=== PATIENT | female | born 1940 | race Caucasian/White ===

== ENCOUNTER 2019-06-05 11:24 | Outpatient (CLI) | payer MEDICARE, SELFPAY ==
--- NOTE | ~2019-06-05 | MMUS_ITS ---
EXAMINATION: MM diagnostic mammo BI, US breast BI limited HISTORY: Bilateral breast masses on screening mammogram TECHNIQUE: Additional 3-D tomosynthesis images of the breasts were performed and synthetic 2-D images were generated. CAD analysis was submitted and interpreted. High resolution limited bilateral breast ultrasound was performed. COMPARISON: 05/11/2019, 05/17/2018, 04/30/2017, 01/28/2015 FINDINGS: MAMMOGRAPHIC FINDINGS: Right breast: There is a 9 mm x 6 mm oval, obscured, equal density mass in the middle third of the br east at the 9:00 location 6 cm from the nipple. Left breast: There are several low density oval, obscured masses in the outer breast, the largest of which measures 12 mm at the 2:00 to 3:00 location. No spiculated mass is identified. ULTRASOUND: Right breast: There are cysts of the outer right breast which measure up to 8 mm. No suspicious sonog raphically detected right breast mass is identified. Left breast: There are cysts of the outer breast including a 1.4 cm cyst at the 2:00 location, accoun ting for the largest mammographically detected mass. There is a 4 mm x 3 mm oval, circumscribed, para llel, hypoechoic mass at the 2:00 location 2 cm from the nipple with no posterior features or interna l vascularity. IMPRESSION: 1. Bilateral breast cysts and a probably benign mass of the left breast at the 2:00 location 2 cm fro m the nipple. 2. Recommend 6 month follow-up left diagnostic mammogram and ultrasound and routine annual screening of the right breast. BI-RADS category 3, probably benign findings. Reviewed, dictated and finalized at location A. [place] IMPRESSION: 1. Bilateral breast cysts and a probably benign mass of the left breast at the 2:00 location 2 cm from the nipple. 2. Recommend 6 month follow-up left diagnostic mammogram and ultrasound and rou stephanie annual screening of the right breast. BI-RADS category 3, probably benign findings.
== END 2019-06-05 11:25 | disposition home or self-care (01) ==
PROVIDERS: PCP Family Medicine; Visit Provider Physician Assistant
DX: R92.8 Other abnormal and inconclusive findings on diagnostic imaging of breast (principal)
CPT/HCPCS: 76642; 77066

== ENCOUNTER → 2019-12-07 10:48 | Outpatient (CLI) | payer MEDICARE, SELFPAY ==
--- NOTE | ~2019-12-07 | XR_ITS ---
XR ankle LT 2V DATE: 12/07/2019 11:09 INDICATION: Left ankle pain, left foot pain TECHNIQUE: AP and lateral views COMPARISON: None FINDINGS: There is mild plantar calcaneal enthesopathy, without periostitis or erosive change. There is hypertrophic degenerative spurring dorsally at the tarsal and tarsal metatarsal region. No fracture or dislocation of the ankle or disruption of the ankle mortise. No periosteal reaction or bone destruction. IMPRESSION: Mild plantar calcaneal enthesopathy Reviewed, dictated and finalized at location A.
== END ==
PROVIDERS: PCP Family Medicine; Visit Provider Family Medicine
DX: M77.32 Calcaneal spur, left foot (principal)
CPT/HCPCS: 73600

== ENCOUNTER 2020-03-09 10:00 | Outpatient (RCR) | payer MEDICARE, SELFPAY ==
--- NOTE | 2020-02-17 11:55 | PTOPEVAL ---
PHYSICAL THERAPY EVALUATION Thank you for referring Emy Lopez to [facility] [place].? Emy was seen for evaluation of the left ankle sprain. The patient is scheduled to be seen for therapy? 1-2x/week for 3 weeks. Please review, sign, date and return this plan of care PABLO. I agree with and certify that the following plan of care is medically necessary. Referring Physician Date Attending Provider: Edgard Novak MD *PT Outpatient Evaluation Start: 02/17/20 10:29 Freq: Status: Active Protocol: Document 02/17/20 10:29 [facility] (Rec: 02/17/20 11:54 [facility] [id number]) Evaluation Evaluation Information Problem Diagnosis left ankle sprain/pain Onset 5 months Cause none Additional Evaluation Detail Patient has no history with her ankle prior. Subjective Information Patient reports pain that had Query Text:As Reported By Patient/ no injury to provoke but was Family walking about a mile a day. Had to stop walking due to ankle issue. The patient saw MD, used tylenol, ice and rest and MD gave her a cortisone shot. The ankle is about 75% better but if on feet for daily activity, the pain returns and she must sit to rest a while. 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 Pain Assessment Timing of Pain Assessment Timing of Pain Assessment Pre-Treatment Pain Scale Pain Scale Used Numeric (1 - 10) Self Report Pain Assessment Left Ankle(s) Reported Pain Level 5 Pain Description Aching,Tightness Pain Frequency Acute Lowest Pain Intensity 7 Greatest Pain Intensity 10 Pain Aggravating Factors Stair Climbing,Walking Other Pain Aggravating Factors carrying weight, Pain Behaviors Limping Pain Score Pain Score 5: Self Report Interventions Used Interventions Used By Clinicians Education,Exercise Other Alleviating Interventions tubigrip (E) left ankle Lower Extremity Range of Motion General Lower Extremity Range of Motion Gross Lower Extremity Range of Motion ankle active motions: right Comments ankle DF 3, PF 35, inversion 23, eversion 5 degrees left ankle: DF 0, PF 30, inversion 16, eversion 0 Lower Extremity Muscle Strength Testing General Lower Extremity Strength Reason Not Measured
--- NOTE | 2020-03-09 10:47 | PTOPEVAL ---
PHYSICAL THERAPY DISHCARGE SUMMARY Thank you for referring Emy Lopez to [facility].? The patient has been seen for 7 visits, for her left ankle sprain, and her goals have been met. Thank you for your referral. Attending Provider: Edgard Novak MD *PT Outpatient Discharge Start: 02/17/20 10:29 Freq: Status: Active Protocol: Document 03/09/20 10:00 [facility] (Rec: 03/09/20 10:47 [facility] [id number]) Therapy Assessment Status Discharge Pain Assessment Timing of Pain Assessment Timing of Pain Assessment Pre-Treatment Self Report Self Report Pain Level 0 Pain Score Pain Score 0: Self Report Lower Extremity Range of Motion General Lower Extremity Range of Motion Gross Lower Extremity Range of Motion left ankle active motion Comments improved: DF 2dg, PF 40dg, inversion 18dg, eversion 16 Lower Extremity Muscle Strength Testing General Lower Extremity Strength Gross Lower Extremity Strength patient now able to complete left ankle inversion and eversion with red tband for 15 -20 reps without increased pain and good movement control . Patient was unable to move actively through motion at eval; power was only isometrically strong Palpation Assessment Palpation Palpation patient is no longer tender/ tight at left ankle Extremity Circumference Assessment Circumference Assessment Location Left Body Part Ankle Site Descriptor ([place]) lateral malleolus Circumference (cm) 22 Noninvolved Side Circumference (cm) 22 Circumference Comments patient wearing tubigrip regularly to keep swelling in control. Gait Assessment Gait Pattern Assessment Other Gait Observations improved gait with a decrease in left limp 90% since eval Rehab Teaching Rehab Teaching Teaching Topic Rehab Teaching Topic Components Exercise,Transfer/Mobility Training As Pertains To Follow-up,Therapy Prognosis Recipient Patient Barriers to Learning None Readiness to Learn Excellent Response Returns Demonstration, Verbalizes Understanding Additional Rehab Teaching Comments instruction to assure exercises to be done after PT d/c PT Clinical Summary Mrs. Lopez is an 79 y/o female seen for left ankle
== END 2020-03-09 12:47 | disposition home or self-care (01) ==
LOC: ANHPT 10:00
PROVIDERS: PCP Family Medicine; Visit Provider Orthopaedic Surgery
DX: S93.402D Sprain of unspecified ligament of left ankle, subsequent encounter (principal)
CPT/HCPCS: 97110; 97161

== ENCOUNTER 2020-07-12 15:53 | Outpatient (CLI) | payer MEDICARE, SELFPAY ==
--- NOTE | ~2020-07-12 | US_ITS ---
US pelvic complete w TV DATE: 07/12/2020 16:27 INDICATION: Left lower quadrant, pelvic pain TECHNIQUE: Real-time imaging via transabdominal and transvaginal approaches COMPARISON: None FINDINGS: An approximately 2.6 x 3.6 x 2.8 cm heterogeneous uterine mass is noted. Different diagnosi s includes endometrial malignancy versus uterine fibroid. The ovaries appear unremarkable. No pelvic mass or abnormal pelvic fluid collection is noted otherwise. IMPRESSION: 2.6 x 3.6 x 2.7 heterogeneous uterine mass; diffusion diagnosis includes endometrial gary gnancy and uterine fibroid Reviewed, dictated and finalized at Location A. Reviewed, dictated and finalized at location A. IMPRESSION: 2.6 x 3.6 x 2.7 heterogeneous uterine mass; diffusion diagnosis inc ludes endometrial malignancy and uterine fibroid
== END 2020-07-12 15:54 | disposition home or self-care (01) ==
PROVIDERS: PCP Family Medicine; Visit Provider Family Medicine
DX: R10.32 Left lower quadrant pain (principal)
CPT/HCPCS: 76830; 76856

== ENCOUNTER 2020-07-28 09:57 | Outpatient (CLI) | payer MEDICARE, SELFPAY ==
[2020-07-28 10:34] LABS: Basophils Absolute Auto 0.1 K/mm3 (0.0-0.1); Eosinophils Absolute Auto 0.2 K/mm3 (0-0.3); Eosinophils Percent Auto 3.1 % (0-4.4); Hematocrit 36.8 % (37.0-47.0); Hemoglobin 11.7 g/dL (12.0-15.0); Immature Granulocyte Absolute 0.02 K/mm3 (0.00-0.031); Immature Granulocyte Percent A 0.4 % (0-0.5); Lymphocytes Absolute Auto 1.74 K/mm3 (0.9-3.2); Lymphocytes Percent Auto 36.3 % (18.3-44.2); Mean Corpuscular HGB Conc 31.8 g/dl (32-36); Mean Corpuscular Hemoglobin 31.1 pg (26-34); Mean Corpuscular Volume 97.9 fl (80-100); Mean Platelet Volume 10.5 fl (7.4-10.4); Monocytes Absolute Auto 0.4 K/mm3 (0.1-0.6); Neutrophils Absolute Auto 2.4 K/mm3 (1.3-6.7); Neutrophils Percent Auto 50.2 % (45.5-73.1); Platelet Count Result 266 k/mm3 (150-375); Red Blood Count 3.76 M/mm3 (4.2-5.4); Red Cell Distribution Width 13.8 % (11.5-14.5); White Blood Count 4.8 K/mm3 (4.5-10.0)
[2020-07-28 10:43] LABS: Rheumatoid Factor < 8.6 IU/ML (<12)
[2020-07-28 10:46] LABS: CRP < 0.5 mg/dL (<1.0); Uric Acid 4.8 mg/dL (2.5-7.5)
[2020-07-28 11:16] LABS: Erythrocyte Sedimentation Rate 49 mm/hr (0-20)
== END 2020-07-28 09:58 | disposition home or self-care (01) ==
LOC: ANHLAB 10:02
PROVIDERS: PCP Family Medicine; Visit Provider Orthopaedic Surgery
DX: M17.0 Bilateral primary osteoarthritis of knee (principal); M06.9 Rheumatoid arthritis, unspecified
CPT/HCPCS: 36415; 84550; 85025; 85652; 86038; 86140; 86430

== ENCOUNTER 2020-08-19 11:26 | Outpatient (CLI) | payer MEDICARE, SELFPAY ==
--- NOTE | 2020-08-19 11:30 | ECG_ITS ---
Measurements Intervals [place] Rate: 64 P: 69 OR: 194 QRS: 11 QRSD: 90 T: 37 QT: 392 QTc: 406 Interpretive Statements SINUS RHYTHM ATRIAL PREMATURE COMPLEX BASELINE ARTIFACT- I, II, III, AVR, AVL, AVF BORDERLINE ECG Electronically Signed On 08-19-2020 11:47:57 CDT by Evangelista Luna D.O.
== END 2020-08-19 11:27 | disposition home or self-care (01) ==
LOC: ANHSURGERY 11:28
PROVIDERS: PCP Family Medicine; Visit Provider Obstetrics & Gynecology
DX: I10 Essential (primary) hypertension (principal); Z01.818 Encounter for other preprocedural examination; R94.31 Abnormal electrocardiogram [ECG] [EKG]
CPT/HCPCS: 93005

== ENCOUNTER → 2020-08-23 00:52 | Outpatient (CLI) | payer MEDICARE, SELFPAY ==
[2020-08-23 20:47] LABS: SARS-CoV-2 RNA PCR Negative
== END ==
PROVIDERS: PCP Family Medicine; Visit Provider Obstetrics & Gynecology
DX: Z01.812 Encounter for preprocedural laboratory examination (principal); Z20.822 Contact with and (suspected) exposure to COVID-19
CPT/HCPCS: C9803; U0003; U0005

== ENCOUNTER 2020-09-02 09:06 | Outpatient (CLI) | payer MEDICARE, SELFPAY ==
--- NOTE | ~2020-09-02 | MM_ITS ---
EXAMINATION: MM screening lu BI w bhavesh HISTORY: Screening TECHNIQUE: Craniocaudal and mediolateral oblique 3-D tomosynthesis images were obtained and synthetic 2-D images were generated. CAD analysis was submitted and interpreted. COMPARISON: Comparison to multiple prior studies sequentially, with oldest reviewed study dated 12/2015. BREAST PARENCHYMAL COMPOSITION: The breasts are heterogenously dense, which may obscure small masses. FINDINGS: The right breast is stable without evidence for malignancy. There are benign right breast c alcifications. There are developing left breast masses centered in the upper outer quadrant of the le ft breast. IMPRESSION: 1. Developing left breast masses. 2. Additional mammographic views and possible breast ultrasound are recommended. BI-RADS Category 0: Incomplete: Needs additional imaging evaluation. Reviewed, dictated and finalized at location A. IMPRESSION: 1. Developing left breast masses. 2. Additional mammographic views and possible breast ultrasound are recommended . BI-RADS Category 0: Incomplete: Needs additional imaging evaluation.
== END 2020-09-02 09:07 | disposition home or self-care (01) ==
LOC: ANHIMG 09:08
PROVIDERS: PCP Family Medicine; Visit Provider Family Medicine
DX: Z12.31 Encounter for screening mammogram for malignant neoplasm of breast (principal); R92.8 Other abnormal and inconclusive findings on diagnostic imaging of breast
CPT/HCPCS: 77063; 77067

== ENCOUNTER 2020-09-05 10:54 | Outpatient (CLI) | payer MEDICARE, SELFPAY ==
[2020-09-05 11:30] LABS: Anion Gap 3 mmol/L (8-16); Blood Urea Nitrogen 18 mg/dL (7-17); Calcium 9.8 mg/dL (8.4-10.2); Carbon Dioxide 31 mmol/L (22-30); Chloride 106 mmol/L (98-107); Estimated Glomerular Filt Rate 48; Glucose 109 mg/dL (65-105); Potassium 4.6 mmol/L (3.4-5.0); Sodium 140 mmol/L (137-145)
== END 2020-09-05 10:55 | disposition home or self-care (01) ==
LOC: ANHSURGERY 10:56
PROVIDERS: Anesthesiology; PCP Family Medicine; Visit Provider Obstetrics & Gynecology
DX: I10 Essential (primary) hypertension (principal); Z01.818 Encounter for other preprocedural examination
CPT/HCPCS: 36415; 80048

== ENCOUNTER → 2020-09-10 01:04 | Outpatient (CLI) | payer MEDICARE, SELFPAY ==
[2020-09-10 19:43] LABS: SARS-CoV-2 RNA PCR Negative
== END ==
PROVIDERS: PCP Family Medicine; Visit Provider Obstetrics & Gynecology
DX: Z01.812 Encounter for preprocedural laboratory examination (principal); Z20.822 Contact with and (suspected) exposure to COVID-19
CPT/HCPCS: C9803; U0003; U0005

== ENCOUNTER 2020-09-14 02:47 | Day surgery (SDC) | payer MEDICARE, SELFPAY ==
[2020-08-18 08:55] VITALS: BMI 29.9
[2020-09-02 14:03] VITALS: BMI 29.9
--- NOTE | 2020-09-02 14:07 | PC.NURSE ---
PT STATES NO CHANGE IN HEALTHY HX SINCE LAST INTERVIEW ON 08/18/20
[2020-09-14 06:20] VITALS: BP 148/74; PULSE 69; RESP 20; TEMP 36.5; O2SAT 99
[2020-09-14] MEDS: ACETAMINOPHEN 500 MG TABLET 1000 MG PO (07:10)
[2020-09-14] MEDS: LACTATED RINGERS 1,000 ML 30 ML IV CONT (07:15)
--- NOTE | 2020-09-14 07:21 | PM.HPGS ---
History of Present Illness History of Present Illness Consent: Risks, benefits, and alternatives have been discussed and questions answered. Patient agrees to proceed with procedure. Chief complaint: post menopausal bleeding Narrative: Emy Lopez is a 79 year old female with post menopausal bleeding sudden onset in the last month. Review of Systems Review of Systems: All systems reviewed & are unremarkable except as noted in HPI and below PMFSH Past Medical History Medical History (Updated 09/14/20 @ 07:23 by Subhash Greer MD) Age-related osteoporosis without current pathological fracture Balance problem BMI 29.0-29.9,adult Chronic renal insufficiency, stage II (mild) Essential (primary) hypertension Fibrocystic changes of left breast Gastroesophageal reflux disease without esophagitis H/O: gout Left ankle pain Mixed hyperlipidemia Postmenopausal bleeding Short-term memory loss Stenosis of carotid artery Uterine mass Vitamin D deficiency Surgical History Surgical History Bunion, left foot Family History Family History Sibling Cerebrovascular accident Family history of malignant neoplasm of breast in first degree relative Acute myocardial infarction Family history of heart disease in male family member before age 55 Father Malignant neoplasm of prostate Diabetes mellitus Hypertension Family history of cardiovascular disease Mother Family history of lymphoma Family history of malignant neoplasm of breast in first degree relative Family history of malignant neoplasm of uterus Other Family history of coronary artery disease Family history of malignant neoplasm Family history of malignant neoplasm of urinary bladder Social History Social History Smoking status: Never smoker Second hand tobacco smoke exposure: No Alcohol intake: current Drinks per week: 2 Substance use: never Substance use type: does not use Living arrangements: with family Spiritual care concerns: No Agree to blood products: No Meds Home Medications and Allergies Home Medications Medication Instructions Recorded Confirmed Type aspirin 81 mg tablet,delayed 81 mg PO DAILY 05/23/19 09/02/20 History release hydrochlorothiazide 25 mg tablet 25 mg PO DAILY 05/23/19 09/02/20 History irbesartan 300 mg tablet 300 mg PO DAILY 05/23/19 09/02/20 History doxycycline hyclate 50 mg capsule 50 mg PO BID cap 03/29/20 09/02/20 History ezetimibe 10 mg tablet 10 mg PO DAILY 03/29/20 09/02/20 History rosuvastatin 5 mg tablet 2.5 mg PO WEEKLY tablet 03/29/20 09/02/20 History donepezil 5 mg tablet 5 mg PO DAILY #90 tablet 08/10/20 09/02/20 Rx pantoprazole 40 mg tablet,delayed 40 mg PO QAM #30 tablet 08/24/20 09/02/20 Rx release cholecalciferol (vitamin D3) 125 mcg PO DAILY 09/02/20 09/02/20 History magnesium 15 mg PO DAILY 09/02/20 09/02/20 History potassium 99 mg PO DAILY 09/02/20 09/02/20 History allopurinol 100 mg tablet 100 mg PO DAILY #90 tablet 09/09/20 Rx Allergies Allergy/AdvReac Type Severity Reaction Status Date / Time No Known Allergies Allergy Verified 09/02/20 13:48 Exam Const: General: cooperative Orientation/consciousness: patient oriented x3 GI: Inspection: normal to inspection : Speculum Exam - Vagina: normal appearance of the vagina Bimanual exam- vagina & uterus: normal bimanual exam and uterine size normal Assessment and Plan Assessment and plan (1) Postmenopausal bleeding: Code(s): N95.0 - Postmenopausal bleeding Status: Acute Assessment and Plan: Scheduled for hystersocopy with dilation and curettage. risk and benefits reviewed.
--- NOTE | 2020-09-14 07:24 | WPDHPUPDATE1 ---
History and Physical Update Update Date/Time: 09/14/20 07:24 History and Physical has been reviewed, including an updated exam of the patient. There are NO changes in the patient's condition. Risks, benefits, and alternatives have been discussed and questions answered. Patient agrees to proceed with procedure.
--- NOTE | 2020-09-14 07:49 | WPDANESEPPF ---
Anes - Initial Pre Proc Eval Procedure: Operation Date: 09/14/20 08:15 Proposed Procedures p Hysteroscopy Dilation and Curettage - Subhash Greer MD Date/Time: 09/14/20 07:49 Surgeon: Subhash Greer MD Pre Op Diagnosis: post menopausal bleeding Patient Data Age: 79 Gender: F Height: 1.65 m Weight: 81.65 kg Allergies Allergy/AdvReac Type Severity Reaction Status Date / Time No Known Allergies Allergy Verified 09/02/20 13:48 Home Medications Medication Instructions Recorded Confirmed Type aspirin 81 mg tablet,delayed 81 mg PO DAILY 05/23/19 09/02/20 History release hydrochlorothiazide 25 mg tablet 25 mg PO DAILY 05/23/19 09/02/20 History irbesartan 300 mg tablet 300 mg PO DAILY 05/23/19 09/02/20 History doxycycline hyclate 50 mg capsule 50 mg PO BID cap 03/29/20 09/02/20 History ezetimibe 10 mg tablet 10 mg PO DAILY 03/29/20 09/02/20 History rosuvastatin 5 mg tablet 2.5 mg PO WEEKLY tablet 03/29/20 09/02/20 History donepezil 5 mg tablet 5 mg PO DAILY #90 tablet 08/10/20 09/02/20 Rx pantoprazole 40 mg tablet,delayed 40 mg PO QAM #30 tablet 08/24/20 09/02/20 Rx release cholecalciferol (vitamin D3) 125 mcg PO DAILY 09/02/20 09/02/20 History magnesium 15 mg PO DAILY 09/02/20 09/02/20 History potassium 99 mg PO DAILY 09/02/20 09/02/20 History allopurinol 100 mg tablet 100 mg PO DAILY #90 tablet 09/09/20 Rx Patient hx anesthesia problems: none Family hx anesthesia problems: none PMFSH Past Medical History Medical History (Updated 09/14/20 @ 07:23 by Subhash Greer MD) Age-related osteoporosis without current pathological fracture Balance problem BMI 29.0-29.9,adult Chronic renal insufficiency, stage II (mild) Essential (primary) hypertension Fibrocystic changes of left breast Gastroesophageal reflux disease without esophagitis H/O: gout Left ankle pain Mixed hyperlipidemia Postmenopausal bleeding Short-term memory loss Stenosis of carotid artery Uterine mass Vitamin D deficiency Surgical History Surgical History Bunion, left foot Family History Family History Sibling Cerebrovascular accident Family history of malignant neoplasm of breast in first degree relative Acute myocardial infarction Family history of heart disease in male family member before age 55 Father Malignant neoplasm of prostate Diabetes mellitus Hypertension Family history of cardiovascular disease Mother Family history of lymphoma Family history of malignant neoplasm of breast in first degree relative Family history of malignant neoplasm of uterus Other Family history of coronary artery disease Family history of malignant neoplasm Family history of malignant neoplasm of urinary bladder Social History Social History Smoking status: Never smoker Second hand tobacco smoke exposure: No Alcohol intake: current Drinks per week: 2 Substance use: never Substance use type: does not use Living arrangements: with family Spiritual care concerns: No Agree to blood products: No Anes - Eval Final PreProcedure Day of Procedure 09/14/20 07:49 Patient weight: obese Heart: regular rate and rhythm Lungs: clear to auscultation and normal air movement Airway: Mallampati scale class II Neurological: alert and oriented Last oral intake: >/= 8 hours ASA classification: III Emergent: no Anesthetic plan: proceed Anesthesia type and monitoring: general GIVS and standard monitoring Informed Consent: The patient's anesthetic plan and its attendant risks and benefits were discussed with the patient/family/POA. Questions were solicited and answers provided to the satisfaction of the patient/family/POA.
--- NOTE | 2020-09-14 08:43 | SUR.OPER ---
Ebl=20ml
[2020-09-14 08:48] VITALS: BP 121/54; PULSE 81; RESP 16; O2SAT 94
[2020-09-14] MEDS: fentaNYL CITRATE INJ (*CRX) 100 MCG/2 ML VIAL 25 MCG IV PUSH ×2 (09:03→09:12)
[2020-09-14 09:15] VITALS: BP 136/68; PULSE 77; RESP 16
[2020-09-14 09:41] VITALS: BP 126/62; PULSE 58; RESP 16
--- NOTE | 2020-09-15 09:15 | PM.PROC ---
Procedure Note - Detailed Date of procedure: 09/15/20 Pre-op diagnosis: post menopausal bleeding Post-op diagnosis: same Procedure performed: hysteroscopy dilation and curettage Description of procedure: Patient was taken to the operating room with I?ll be running. She was prepared to draped in a normal sterile fashion.Papatient was placed in lithotomy position. A Bible speculum was placed into the vagina. Service was grass with a single tooth to macula. And cervix injected with 1% lidocaine at 2o?clock and 5 o?clock with 1% lidocaine. Uterus was sounded to 7 cm and the cervix was dilated. ascalpel was used to indent cervix and lacrimal duct dilators used to find os and cervix serially dilated to 7 with reji dilators. Hysteroscope was introduced into the uterine cavity and showed thickened endometrium The hysteroscope was removed from the vagina. a curettage was performed in all four quadrants. All instruments were removed from the vagina and patient was taken to recovery room in stable condition Anesthesia: MAC and local Surgeon: Subhash Greer MD Estimated blood loss (mL): 20 Condition: stable Findings: 500 cc fluid loss
== END 2020-09-14 09:42 | disposition home or self-care (01) ==
PROVIDERS: PCP Family Medicine; Visit Provider Obstetrics & Gynecology
PROC: 0U5B8ZZ Destruction of Endometrium, Via Natural or Artificial Opening Endoscopic (ICD-10-PCS; CPT 58563; principal; 2020-09-14 08:15)
DX: N95.0 Postmenopausal bleeding (principal); N85.8 Other specified noninflammatory disorders of uterus; E78.2 Mixed hyperlipidemia; E55.9 Vitamin D deficiency, unspecified; M81.0 Age-related osteoporosis without current pathological fracture; I12.9 Hypertensive chronic kidney disease with stage 1 through stage 4 chronic kidney disease, or unspecified chronic kidney disease; N18.2 Chronic kidney disease, stage 2 (mild); K21.9 Gastro-esophageal reflux disease without esophagitis; Z79.82 Long term (current) use of aspirin; E66.9 Obesity, unspecified; Z68.30 Body mass index [BMI] 30.0-30.9, adult
CPT/HCPCS: 58558; 36415; 80048; 88305; 93005; A9270; C9803; J2704; J3010; J7030; J7120; U0003; U0005

== ENCOUNTER 2020-09-30 12:39 | Outpatient (CLI) | payer MEDICARE, SELFPAY ==
--- NOTE | ~2020-09-30 | MMUS_ITS ---
EXAMINATION: MM diagnostic lu LT w bhavesh, US breast LT limited HISTORY: Follow-up left breast asymmetries TECHNIQUE: Additional 3-D tomosynthesis images of the left breast were performed and synthetic 2-D im ages were generated. CAD analysis was submitted and interpreted. High resolution left limited breast ultrasound was performed. COMPARISON: Comparison to multiple prior studies sequentially, with oldest reviewed study dated 12/2015. BREAST PARENCHYMAL COMPOSITION: The breasts are heterogenously dense, which may obscure small masses. FINDINGS: MAMMOGRAPHIC FINDINGS: There are a few small subcentimeter masses which are obscured by overlying dense fibroglandular tissu e. No suspicious calcifications or architectural distortion. ULTRASOUND: Left breast ultrasound: There are multiple cysts of the left breast in the lateral aspect of the left breast corresponding to the masses identified on mammography. No suspicious sonographic masses to arnett ggest malignancy. IMPRESSION: 1. No evidence for malignancy in the left breast. Benign findings. 2. Routine yearly screening mammogram and regular clinical breast examination are recommended. BI-RADS Category 2: Benign finding(s). Reviewed, dictated and finalized at location A. IMPRESSION: 1. No evidence for malignancy in the left breast. Benign findings. 2. Routine yearly screening mammogram and regular clinical breast examination a re recommended. BI-RADS Category 2: Benign finding(s).
== END 2020-09-30 12:40 | disposition home or self-care (01) ==
LOC: ANHIMG 12:43
PROVIDERS: PCP Family Medicine; Visit Provider Physician Assistant
DX: R92.8 Other abnormal and inconclusive findings on diagnostic imaging of breast (principal)
CPT/HCPCS: 76642; 77061; 77065; G0279

== ENCOUNTER → 2021-04-21 08:47 | Outpatient (CLI) | payer MEDICARE, SELFPAY ==
[2021-04-21 19:18] LABS: SARS-CoV-2 RNA PCR Negative
== END ==
PROVIDERS: PCP Family Medicine; Visit Provider Family Medicine
DX: J06.9 Acute upper respiratory infection, unspecified (principal); Z20.822 Contact with and (suspected) exposure to COVID-19
CPT/HCPCS: C9803; U0003; U0005

== ENCOUNTER 2021-08-21 11:11 | Outpatient (CLI) | payer MEDICARE, SELFPAY ==
--- NOTE | ~2021-08-21 | XR_ITS ---
EXAMINATION: XR knee RT 3V DATE: 08/21/2021 11:33 INDICATION: Right knee pain. TECHNIQUE: 3 views of right knee were obtained. COMPARISON: None. FINDINGS: Bone alignment is normal. No fracture. There is mild osteoarthritis of medial and patellofe moral compartments. There is a moderate-sized knee joint effusion. IMPRESSION: 1. Mild right knee osteoarthritis. 2. Moderate-sized right knee joint effusion. Reviewed, dictated and finalized at location A.
--- NOTE | ~2021-08-21 | XR_ITS ---
EXAMINATION: XR ankle LT min 3V DATE: 08/21/2021 11:34 INDICATION: Left ankle pain. TECHNIQUE: 4 views of left ankle were obtained. COMPARISON: Left ankle radiographs 12/07/2019 FINDINGS: Bone alignment is normal. There is mild midfoot osteoarthritis. There is an enthesophyte at plantar aspect of calcaneal tuberosity. Ankle soft tissue swelling is noted. IMPRESSION: 1. No fracture. Reviewed, dictated and finalized at location A. IMPRESSION: 1. No fracture.
== END 2021-08-21 11:12 | disposition home or self-care (01) ==
LOC: ANHIMG 11:14
PROVIDERS: PCP Family Medicine; Visit Provider Family Medicine
DX: M25.572 Pain in left ankle and joints of left foot (principal); M17.11 Unilateral primary osteoarthritis, right knee; M25.461 Effusion, right knee
CPT/HCPCS: 73562; 73610

== ENCOUNTER 2021-11-06 15:00 | Outpatient (CLI) | payer MEDICARE, SELFPAY ==
--- NOTE | ~2021-11-06 | MM_ITS ---
EXAMINATION: MM screening lu BI w bhavesh HISTORY: Screening mammogram, family history of breast cancer in her mother and sister. TECHNIQUE: Craniocaudal and mediolateral oblique 3-D tomosynthesis images were obtained and synthetic 2-D images were generated. CAD analysis was submitted and interpreted. COMPARISON: 09/30/2020, 09/02/2020, 06/05/2019, 05/11/2019, 05/07/2017 BREAST PARENCHYMAL COMPOSITION: The breasts are heterogeneously dense, which may obscure small masses . FINDINGS: Scattered benign-appearing calcifications are present. There is no suspicious mass, calcifi cation, or architectural distortion to suggest malignancy in either breast. There has been no suspici ous interval change. IMPRESSION: 1. No mammographic evidence of malignancy. 2. Recommend routine screening mammography while the patient remains in good health. BI-RADS Category 2: Benign finding(s). Reviewed, dictated and finalized at location A. IMPRESSION: 1. No mammographic evidence of malignancy. 2. Recommend routine screening mammography while the patient remains in good he alth. BI-RADS Category 2: Benign finding(s).
== END 2021-11-06 15:01 | disposition home or self-care (01) ==
LOC: ANHIMG 15:01
PROVIDERS: PCP Family Medicine; Visit Provider Family Medicine
DX: Z12.31 Encounter for screening mammogram for malignant neoplasm of breast (principal)
CPT/HCPCS: 77063; 77067

== ENCOUNTER 2021-12-04 12:37 | Outpatient (CLI) | payer MEDICARE, SELFPAY ==
--- NOTE | ~2021-12-04 | XR_ITS ---
XR clavicle RT DATE: 12/04/2021 13:06 INDICATION: Injury a few months ago; clavicle protruding TECHNIQUE: 2 views COMPARISON: 03/13/2010 right shoulder FINDINGS: Osteopenia. There is mild degenerative change at the right acromioclavicular joint. Normal alignment at the acromioclavicular and glenohumeral joints. No fracture or dislocation, periosteal reaction or bone destruction of the right clavicle. IMPRESSION: Osteopenia Mild degenerative change of the right acromioclavicular joint Reviewed, dictated and finalized at location B.
== END 2021-12-04 12:38 | disposition home or self-care (01) ==
PROVIDERS: PCP Family Medicine; Visit Provider Family Medicine
DX: Q74.0 Other congenital malformations of upper limb(s), including shoulder girdle (principal); M85.811 Other specified disorders of bone density and structure, right shoulder; M19.011 Primary osteoarthritis, right shoulder
CPT/HCPCS: 73000

== ENCOUNTER 2022-01-12 11:27 | Emergency (ER) | payer MEDICARE, SELFPAY ==
[2022-01-12 11:38] VITALS: BP 101/77; PULSE 80; RESP 18; TEMP 36.6; O2SAT 97
--- NOTE | 2022-01-12 11:51 | ED.GENADULT ---
HPI - General Adult General Chief complaint: Upper Respiratory Infection Stated complaint: HEADACHE/SORE THROAT/COUGH/SINUS CONGESTION History of Present Illness HPI narrative: Patient is a 81-year-old female who presents to the [facility] via POV for an evaluation of upper respiratory symptoms that began 3 days ago. She has hx significant for HTN, GERD, and hyperlipidemia. She is accompanied by her spouse. Additionally, she reports feeling weak, frontal headache, sore throat, myalgias, arthralgias, SOB, and sweats. OTC sinus meds provide minimal relief. Nothing worsens sx. She reports being fully vaccinated against covid. Denies known exposure to sick contact. Related Data Home Medications Medication Instructions Recorded Confirmed aspirin 81 mg tablet,delayed 81 mg PO DAILY 05/23/19 12/04/21 release (Adult Low Dose Aspirin) hydrochlorothiazide 25 mg tablet 25 mg PO DAILY 05/23/19 12/04/21 irbesartan 300 mg tablet 300 mg PO DAILY 05/23/19 12/04/21 ezetimibe 10 mg tablet 10 mg PO DAILY 03/29/20 12/04/21 rosuvastatin 5 mg tablet 2.5 mg PO WEEKLY 03/29/20 12/04/21 cholecalciferol (vitamin D3) 125 125 mcg PO DAILY 09/02/20 12/04/21 mcg (5,000 unit) tablet magnesium 500 mg tablet 15 mg PO DAILY 09/02/20 12/04/21 potassium 99 mg tablet 99 mg PO DAILY 09/02/20 12/04/21 evolocumab 140 mg/mL subcutaneous 140 mg subcut ONCE 08/29/21 12/04/21 pen injector Allergies Allergy/AdvReac Type Severity Reaction Status Date / Time No Known Allergies Allergy Verified 12/04/21 10:54 Review of Systems Review of Systems: Denies fever, change in appetite, drooling, difficulty swallowing, ear pain, severe persistent headaches, dizziness, LOC, paresthesias, cough, wheezing, cyanosis, abdominal pain, nausea, vomiting, diarrhea, constipation, chest pain, and heart palpitations PMFSH Past Medical History Medical History Age-related osteoporosis without current pathological fracture Balance problem BMI 29.0-29.9,adult Chronic renal insufficiency, stage II (mild) Coronary artery disease Essential (primary) hypertension Fibrocystic changes of left breast Gastroesophageal reflux disease without esophagitis H/O: gout Left ankle pain Mixed hyperlipidemia Postmenopausal bleeding Short-term memory loss Stenosis of carotid artery Uterine mass Venous insufficiency Vitamin D deficiency Surgical History Surgical History Bunion, left foot Family History Family History Sibling Cerebrovascular accident Family history of malignant neoplasm of breast in first degree relative Acute myocardial infarction Family history of heart disease in male family member before age 55 Father Malignant neoplasm of prostate Diabetes mellitus Hypertension Family history of cardiovascular disease Mother Family history of lymphoma Family history of malignant neoplasm of breast in first degree relative Family history of malignant neoplasm of uterus Other Family history of coronary artery disease Family history of malignant neoplasm Family history of malignant neoplasm of urinary bladder Social History Social History Smoking status: Never smoker Second hand tobacco smoke exposure: No Alcohol intake: current Drinks per week: 2 Substance use: never Substance use type: does not use Gender identity (if verbalized by the patient): Female Spiritual care concerns: No Agree to blood products: No Comments I have reviewed and agree with the patient's past medical, surgical, social, and family hx as documented by the RN. There is no relevant family history pertinent to the presenting complaint. Exam Narrative: GENERAL: Well-appearing, well-nourished, and in no acute distress. Appears fatigu
== END 2022-01-12 12:13 | disposition short-term general hospital (02) ==
PROVIDERS: Emergency Provider Nurse Practitioner Family; PCP Family Medicine
DX: U07.1 COVID-19 (principal); I10 Essential (primary) hypertension; K21.9 Gastro-esophageal reflux disease without esophagitis; E78.5 Hyperlipidemia, unspecified; Z79.82 Long term (current) use of aspirin; I25.10 Atherosclerotic heart disease of native coronary artery without angina pectoris; E55.9 Vitamin D deficiency, unspecified
CPT/HCPCS: 87426; 99213; C9803; G0463

== ENCOUNTER 2022-04-25 11:38 | Outpatient (CLI) | payer MEDICARE, SELFPAY ==
--- NOTE | ~2022-04-25 | XR_ITS ---
EXAMINATION: XR clavicle RT INDICATION: Clavicle pain after fall TECHNIQUE: Two views of the right clavicle are obtained. COMPARISON: 12/04/2021 FINDINGS: Bone alignment is normal. There is no fracture. There is moderate osteoarthritis at the acr omioclavicular joint. The soft tissues are unremarkable. IMPRESSION: 1. Osteoarthritis of the acromioclavicular joint without acute osseous abnormality. Reviewed, dictated and finalized at location B. RECRUITER IMPRESSION: 1. Osteoarthritis of the acromioclavicular joint without acute osseous abnormal ity.
--- NOTE | ~2022-04-25 | XR_ITS ---
EXAMINATION: [id number] INDICATION: Right rib pain TECHNIQUE: A frontal view of the chest and 3 views of the right ribs were obtained. COMPARISON: None. FINDINGS: There is mild atelectasis of the right lung base. No displaced rib fracture is identified. The cardiomediastinal silhouette is normal. No pleural effusion or pneumothorax. IMPRESSION: 1. No evidence of displaced rib fracture. 2. Mild atelectasis of the right lung base. Reviewed, dictated and finalized at location B. INSURANCE AGENT
--- NOTE | ~2022-04-25 | XR_ITS ---
Right Shoulder Technique: AP and scapular Y views were obtained. Clinical History: Pain Findings: No fracture or dislocation is seen. Osseous alignment is anatomic. The glenohumeral joint i s preserved. There is mild AC joint degenerative change. Soft tissues are unremarkable. Impression: No fracture or dislocation. Mild AC joint degenerative change. Reviewed, dictated and finalized at location . OPERATOR Impression: No fracture or dislocation. Mild AC joint degenerative change.
== END 2022-04-25 11:39 | disposition home or self-care (01) ==
PROVIDERS: PCP Family Medicine; Visit Provider Physician Assistant Medical
DX: S49.91XA Unspecified injury of right shoulder and upper arm, initial encounter (principal); R07.81 Pleurodynia; X58.XXXA Exposure to other specified factors, initial encounter; R91.8 Other nonspecific abnormal finding of lung field; M19.011 Primary osteoarthritis, right shoulder
CPT/HCPCS: 71101; 73000; 73030

== ENCOUNTER 2022-05-02 11:06 | Emergency (ER) | payer MEDICARE, SELFPAY ==
--- NOTE | ~2022-05-02 | XR_ITS ---
EXAMINATION: XR abdomen/kub 1V DATE: 05/02/2022 12:10 INDICATION: Abdominal pain. Vomiting. TECHNIQUE: A supine view of the abdomen on 2 radiographs was obtained. COMPARISON: None. FINDINGS: There are no dilated loops of bowel. There is a small volume of stool in the colon. There a re phleboliths in the pelvis. IMPRESSION: 1. Normal bowel gas pattern. Reviewed, dictated and finalized at location A. ER UNLOADER
[2022-05-02 11:21] VITALS: BP 144/65; PULSE 82; RESP 16; TEMP 36; O2SAT 98
--- NOTE | 2022-05-02 12:11 | ED.NAVMDI ---
HPI - Nausea/Vomiting/Diarrhea General Chief complaint: Nausea/Vomiting/Diarrhea Stated complaint: vomiting Time Seen by Provider: 05/02/22 11:06 Source: patient and RN notes reviewed Mode of arrival: ambulatory Limitations: no limitations History of Present Illness HPI Narrative: 81 year old female accompanied by spouse presents to express care with complaints of umbilical area abdominal pain which radiates to right lower middle region of abdomen. Patient reports that she fell at home on the and hurt her right shoulder and ribs and had x-rays done on the 25 of April after seeing her PCP of her shoulder and ribs which were all negative. Patient reports that on her way home that day they stopped at local burger shop and had burger and chocolate shake and before getting home she had emesis in parking lot and also 3 times before actually making it home. She then proceeded to have diarrhea for 24 hours. Patient states that she has been having no further diarrhea but continues to have vomiting with any solid food, has tolerated small amounts of juices and tomato soup. History of GERD, and hiatal hernia MD elicited complaint: vomiting and abdominal pain Onset (ago): day(s) (8) Description of vomiting: food contents Associated nausea: Yes Associated abdominal pain: Yes Location of pain: other (umbilical area radiating to right lower middle abdomen) Pain scale (0-10): 4 Treatment prior to arrival: none Related Data Home Medications Medication Instructions Recorded Confirmed aspirin 81 mg tablet,delayed 81 mg PO DAILY 05/23/19 05/02/22 release (Adult Low Dose Aspirin) hydrochlorothiazide 25 mg tablet 25 mg PO DAILY 05/23/19 05/02/22 irbesartan 300 mg tablet 300 mg PO DAILY 05/23/19 05/02/22 ezetimibe 10 mg tablet 10 mg PO DAILY 03/29/20 05/02/22 rosuvastatin 5 mg tablet 2.5 mg PO WEEKLY 03/29/20 05/02/22 cholecalciferol (vitamin D3) 125 125 mcg PO DAILY 09/02/20 05/02/22 mcg (5,000 unit) tablet evolocumab 140 mg/mL subcutaneous 140 mg subcut ONCE 08/29/21 05/02/22 pen injector amlodipine 5 mg tablet 5 mg PO DAILY 05/02/22 05/02/22 nirmatrelvir 150 mg-ritonavir 100 ea PO 05/02/22 mg tablets in a dose pack (EUA) (Paxlovid) Allergies Allergy/AdvReac Type Severity Reaction Status Date / Time No Known Allergies Allergy Verified 05/02/22 11:26 Review of Systems Review of Systems: CONSTITUTIONAL: Reports low grade fever, chills, or sweats. ENT: Denies rhinorrhea, congestion, sore throat, or otalgia. CARDIOVASCULAR: Denies chest pain, palpitations, or edema. RESPIRATORY: Denies cough or dyspnea. GASTROINTESTINAL: Reports periumbilical abdominal pain which radiated to right abdomen,positive for nausea, vomiting on with continued intermittent vomiting with solid foods, able to tolerate liquids, previous 24 hours of diarrhea on April 25 none since with stool yesterday normal GENITOURINARY: Denies dysuria or hematuria. SKIN: Denies rash or itching. MUSCULOSKELETAL: Denies back pain, joint pain, or myalgia. NEUROLOGIC: Denies headache, numbness, or weakness. All systems reviewed & are unremarkable except as noted in HPI and below PMFSH Past Medical History Medical History Age-related osteoporosis without current pathological fracture Balance problem BMI 29.0-29.9,adult Chronic renal insufficiency, stage II (mild) Coronary artery disease Essential (primary) hypertension Fibrocystic changes of left breast Gastroesophageal reflux disease without esophagitis H/O: gout Left ankle pain Mixed hyperlipidemia Postmenopausal bleeding Short-term memory loss Stenosis of carotid artery Uterine mass Venous insufficiency Vitamin D deficiency Surgical History Surgical History Bunion, left foot Family History Family History Sibling Cerebrovascular accid
== END 2022-05-02 12:45 | disposition short-term general hospital (02) ==
PROVIDERS: Emergency Provider Registered Nurse; PCP Family Medicine
DX: R10.33 Periumbilical pain (principal); R11.2 Nausea with vomiting, unspecified; I25.10 Atherosclerotic heart disease of native coronary artery without angina pectoris; I12.9 Hypertensive chronic kidney disease with stage 1 through stage 4 chronic kidney disease, or unspecified chronic kidney disease; N18.2 Chronic kidney disease, stage 2 (mild); K21.9 Gastro-esophageal reflux disease without esophagitis; M10.9 Gout, unspecified; E78.2 Mixed hyperlipidemia; I65.29 Occlusion and stenosis of unspecified carotid artery; I87.2 Venous insufficiency (chronic) (peripheral); E55.9 Vitamin D deficiency, unspecified; Z79.82 Long term (current) use of aspirin
CPT/HCPCS: 74018; 81003; 99213; G0463